=== PATIENT | female | born 1960 | race Caucasian/White ===

== ENCOUNTER 2021-03-20 18:05 | Emergency (ER) | payer OTHER ==
[~2021-03-20] VITALS: Ht 162.6 cm; Wt 113.4 kg
[2021-03-20] MEDS ORDERED: SOTROVIMAB 500 MG in SODIUM CHLORIDE 0.9% 100 ML IV ONE (18:30)
[2021-03-20] MEDS ORDERED: SODIUM CHLORIDE 0.9% 100 ML ONE (18:38)
== END 2021-03-20 20:59 | disposition home or self-care (01) ==
LOC: ER 20:59
DX: R50.9 Fever, unspecified (principal); U07.1 COVID-19; I10 Essential (primary) hypertension; N28.9 Disorder of kidney and ureter, unspecified; J45.909 Unspecified asthma, uncomplicated; G62.9 Polyneuropathy, unspecified
CPT/HCPCS: 99283; J7050

== ENCOUNTER → 2024-06-21 | Outpatient (REF) | payer MEDICARE | LOC: RAD 10:55 | PROVIDERS: ATTEND Nurse Practitioner Gerontology | DX: M25.511 Pain in right shoulder (principal) ==